=== PATIENT | female | born 1955 | race Caucasian/White ===

== ENCOUNTER → 2016-10-26 | Outpatient (CLI) | payer OTHER ==
[~2016-10-26] MED LIST: CLON1TAB13 PO; HYDR25TA6 PO; LISI-170 PO; METF500T4 PO
== END | disposition home or self-care (01) ==
LOC: CFH 09:20 → EDSTATUS 09:30 → MERGE 09:30
PROVIDERS: ATTEND Internal Medicine
DX: E04.2 Nontoxic multinodular goiter (principal)
CPT/HCPCS: 76536